=== PATIENT | male | born 1990 | race African-American/Black ===

== ENCOUNTER 2019-01-22 20:04 | Emergency (ER) | payer MEDICAID ==
[~2019-01-22] VITALS: Ht 172.7 cm; Wt 68.0 kg
[2019-01-23 00:27] VITALS: BP 115/86
[2019-01-23] MEDS ORDERED: DexAMETHasone SOD PHOS 10MG/1ML VIAL INJ IM ONE (00:45)
[2019-01-23] MEDS ORDERED: ACETAMINOPHEN/CODEINE#3 (300/30mg) TAB PO ONE (00:45)
[2019-01-23] MEDS ORDERED: BACLOFEN 10 MG TAB PO ONE (00:45)
== END 2019-01-23 01:32 | disposition home or self-care (01) ==
LOC: EDSEX 20:13 → ER 20:13
DX: S16.1XXA Strain of muscle, fascia and tendon at neck level, initial encounter (principal); H65.93 Unspecified nonsuppurative otitis media, bilateral; R51 Headache; X58.XXXA Exposure to other specified factors, initial encounter; Y93.89 Activity, other specified; Y92.89 Other specified places as the place of occurrence of the external cause; Y99.8 Other external cause status
CPT/HCPCS: 96372; 99283; J1100

== ENCOUNTER 2019-02-25 08:18 | Emergency (ER) | payer MEDICAID ==
[~2019-02-25] VITALS: Ht 180.3 cm; Wt 74.8 kg
[2019-02-25 08:28] VITALS: BP 118/72
[2019-02-25] MEDS ORDERED: IBUPROFEN 800 MG TAB PO ONE (09:30)
== END 2019-02-25 09:41 | disposition home or self-care (01) ==
LOC: EDBD 08:18 → ER 08:21
DX: S93.601A Unspecified sprain of right foot, initial encounter (principal); X58.XXXA Exposure to other specified factors, initial encounter; Y93.01 Activity, walking, marching and hiking; Y92.89 Other specified places as the place of occurrence of the external cause; Y99.8 Other external cause status
CPT/HCPCS: 73630

== ENCOUNTER 2022-03-21 13:53 | Emergency (ER) | payer MEDICAID ==
[~2022-03-21] VITALS: Ht 170.2 cm; Wt 54.7 kg
[2022-03-21 14:24] VITALS: BP 105/48
[2022-03-21] MEDS ORDERED: FAMOTIDINE (10MG/ML) 2ML VL IV ONE (14:45)
[2022-03-21] MEDS ORDERED: LIDOCAINE VISCOUS 2% 15ML UD PO ONE (14:45)
[2022-03-21] MEDS ORDERED: SODIUM CHLORIDE 0.9% 1,000 ML IV ONE (14:45)
[2022-03-21] MEDS ORDERED: ALUM & MAG HYDROX-SIMETH LIQ(MAALOX) 30 ML PO ONE (14:45)
[2022-03-21] MEDS ORDERED: ONDANSETRON HCL 4 MG/2 ML VIAL IV ONE (14:45)
[2022-03-21 15:23] LABS: Albumin 4.3 g/dL (3.4-5.0); BUN/Creatinine Ratio 15.6; Calcium 8.9 mg/dL (8.5-10.1); Magnesium 2.2 mg/dL (1.6-2.6)
[2022-03-21 15:26] LABS: Bilirubin, Total 0.4 mg/dL (0.2-1.0); Total Protein 7.6 g/dL (6.4-8.2)
[2022-03-21 15:40] LABS: Eosinophils % (auto) 0.1 % (0.0-7.0); Lymphocytes % (auto) 25.7 % (10.0-50.0); Neutrophils % (auto) 62.7 % (37.0-80.0); White Blood Cell 6.5 10^3/uL (4.4-10.8)
[2022-03-21 15:41] LABS: Basophils # (auto) 0 10 ^3/uL (0-0.2); Basophils % (auto) 0.5 % (0.0-2.0); Eosinophils # (auto) 0 10 ^3/uL (0-0.8); Hematocrit 48.8 % (41.0-53.0); Hemoglobin 16.7 g/dL (13.5-17.5); Lymphocytes # (auto) 1.7 10 ^3/uL (0.4-5.4); Mean Corpuscular Hemoglobin 30.5 pg (28.0-32.0); Mean Corpuscular Volume 89.1 fL (80.0-100.0); Monocytes # (auto) 0.7 10 ^3/uL (0-1.3); Neutrophils # (auto) 4.1 10 ^3/uL (1.6-8.6); Red Blood Cells 5.48 10^6/uL (4.5-5.90)
[2022-03-21 15:42] LABS: Mean Corpuscular Hgb Conc. 34.2 g/dL (32.0-36.0); Red Cell Distribution Width 12.7 % (11.8-14.3)
[2022-03-21] MEDS ORDERED: ONDA-144 PO (17:33)
== END 2022-03-21 17:37 | disposition home or self-care (01) ==
LOC: ER 13:53
DX: R10.13 Epigastric pain (principal); R11.2 Nausea with vomiting, unspecified; R19.7 Diarrhea, unspecified
CPT/HCPCS: 36415; 71045; 80053; 83690; 83735; 83880; 84484; 85025; 93005; 96361; 96374; 96375; 99285; J2405; J3490; J7030